=== PATIENT | male | born 1995 | race Caucasian/White ===

== ENCOUNTER 2016-06-29 13:28 | Emergency (ER) | payer OTHER ==
[2016-06-29 13:35] VITALS: BP 137/94; PULSE 59; RESP 18; TEMP 97.5; O2SAT 98
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
== END 2016-06-29 14:29 | disposition home or self-care (01) ==
DX: S06.0X0A Concussion without loss of consciousness, initial encounter (principal); F17.200 Nicotine dependence, unspecified, uncomplicated; W22.8XXA Striking against or struck by other objects, initial encounter; Y93.89 Activity, other specified

== ENCOUNTER 2016-08-05 17:48 | Observation (INO) | payer OTHER ==
[2016-08-05 18:19] LABS: % IMMATURE GRANULYOCYTES 0.4 % (0.0-1.1); ABSOLUTE IMMATURE GRANULOCYTES 0.04 10^3/uL (0.00-0.10); ADD DIFF? NO; ADD MORPH? NO; ADD SCAN? NO; ATYPICAL LYMPHOCYTE FLAG 20 (0-99); FRAGMENT RBC FLAG 0 (0-99); HEMATOCRIT 46.4 % (40.0-51.0); HEMOGLOBIN 15.6 g/dL (13.7-17.5); LEFT SHIFT FLG 0 (0-99); LIPEMIA HEMOLYSIS FLAG 80 (0-99); MEAN CELL HEMOGLOBIN CONCENTR. 33.6 g/dL (32.4-36.7); MEAN CELL VOLUME 80.3 fL (81.5-99.8); MEAN PLATELET VOLUME 9.8 fL (8.7-11.7); PLATELET CLUMPS FLAG 0 (0-99); PLATELET COUNT 177 10^3/uL (150-400); RED BLOOD CELL COUNT 5.78 10^6/uL (4.40-6.38); RED CELL DISTRIBUTION WIDTH 13.1 % (11.5-15.2)
--- NOTE | 2016-08-05 18:19 | EDPHY ---
H & P Time Seen by Provider: 08/05/16 18:15 HPI/ROS: Chief complaint. Abdominal pain HPI. 20-year-old male presents emergency department with abdominal pain that started about 7 o'clock this morning. Initially he thought he just had upset stomach or ate something that did not agree with him. He had dull pain in the periumbilical area. It is now moved to the right lower quadrant. No left- sided pain. His pain is worse with movement. No vomiting. Decreased appetite. He last ate at 3:30 p.m.. He has no abdominal history. No urinary symptoms. No complaints of penis or testicles problem. No similar symptoms previously ROS Constitutional. no fever/chills, no weakness Eyes. no problems with vision ENT. no sore throat, no nasal drainage Cardiovascular. no chest pain Respiratory. no shortness of breath, no cough Abdominal. Right lower quadrant abdominal pain . no problems urinating MS. no calf pain/swelling, no neck/back pain, no joint pain Skin. no rash Lymph. no swollen glands Neuro. no headache, no dizziness, no difficulty walking or with speech Past Medical/Surgical History: Healthy Social History: Single, daily smoker, no alcohol Smoking Status: Current some day smoker Physical Exam: General Appearance: Alert well-developed male mild distress vital signs are stay Eyes: Pupils equal and round no pallor or injection. ENT, Mouth: Mucous membranes are moist. Respiratory: There are no retractions, lungs are clear to auscultation. Cardiovascular: Regular rate and rhythm. Gastrointestinal: Abdomen is soft with tenderness in the right lower quadrant at McBurney's point. He has peritoneal irritation when palpating the left side that irritates the right lower quadrant. Decreased bowel sounds. No masses Neurological: Awake and alert, sensory and motor exams grossly normal. Skin: Warm and dry, no rashes. Musculoskeletal: Neck is supple nontender. Extremities symmetrical, full range of motion. Psychiatric: Patient is oriented X 3, there is no agitation. Constitutional: Initial Vital Signs Temperature (C) 36.8 C 08/05/16 17:48 Heart Rate 84 08/05/16 17:48 Respiratory Rate 16 08/05/16 17:48 Blood Pressure 140/90 H 08/05/16 17:48 O2 Sat (%) 94 08/05/16 17:48 O2 Delivery Mode Room Air Allergies/Adverse Reactions: No Known Allergies Allergy (Unverified 06/29/16 13:32) Home Medications: Medication Instructions Recorded NK [No Known Home Meds] 06/29/16 Medical Decision Making - Diagnostics Imaging Results: Imaging Impressions Abdomen CT 08/05/16 18:35 Impression: 1. Borderline thickened appendix with only minimal if any periappendiceal inflammatory change suggestive of very early appendicitis. However, clinical correlation is recommended. 2. Small amount of free fluid in the cul-de-sac. Findings discussed with Dr. Jak Caicedo at 19:32 hour, 08/05/2016. CT abdomen and pelvis with IV contrast reviewed by me and discussed with Dr. Moreau shows possible early appendicitis. No other source of pain for the right lower quadrant is identified Procedures: IV normal saline ED Course/Re-evaluation: Patient and I discussed imaging lab results. We discussed treatment plan including need for surgery. Patient expresses understanding abdomen I consulted and discussed case with Dr. Crane, surgeon, who sees the patient in the emergency department. He agrees the patient has appendicitis. Differential Diagnosis: I considered appendicitis, urinary tract infection and pyelonephritis, constipation - Data Points Laboratory Results: Laboratory Results 08/05/16 21:05 08/05/16 18:04 08/05/16 08/05/16 08/05/16 21:05 21:05 19:20 WBC 7.75 10^3/uL 10^3/uL (3.80-9.50) RBC 4.94 10^6/uL 10^6/uL (4.40-6.38) Hgb 13.4 g/dL L g/dL (13.7-17.5) Hct 39.7 % L % (40.0-51.0) MCV 80.4 fL L fL (81.5-99.8) MCH 27.1 pg L pg (27.9-34.1) MCHC 33.8 g/dL g/dL (32.4-36.7) RDW 13.2 % % (11.5-15.2) Plt Count 147 10^3/uL L 10^3/uL (150-400) MPV 9.9 fL fL (8.7-11.7) Neut % (Auto) 59.2 % % (39.3-74.2) Lymph % (Auto) 28.0 % % (15.0-45.0) Randolph % (Auto) 10.6 % % (4.5-13.0) Eos % (Auto) 1.5 % % (0.6-7.6) Baso % (Auto) 0.4 % % (0.3-1.7) Nucleat RBC Rel Count 0.0 % % (0.0-0.2) Absolute Neuts (auto) 4.59 10^3/uL 10^3/uL (1.70-6.50) Absolute Lymphs (auto) 2.17 10^3/uL 10^3/uL (1.00-3.00) Absolute Monos (auto) 0.82 10^3/uL H 10^3/uL (0.30-0.80) Absolute Eos (auto) 0.12 10^3/uL 10^3/uL (0.03-0.40) Absolute Basos (auto) 0.03 10^3/uL 10^3/uL (0.02-0.10) Absolute Nucleated RBC 0.00 10^3/uL 10^3/uL (0-0.01) Immature Gran % 0.3 % % (0.0-1.1) Immature Gran # 0.02 10^3/uL 10^3/uL (0.00-0.10) Sodium Potassium Chloride Carbon Dioxide Anion Gap BUN Creatinine Estimated GFR Glucose Calcium C-Reactive Protein 15.9 mg/L H mg/L (<10.0) Urine Color YELLOW Urine Appearance CLEAR Urine pH 7.0 (5.0-7.5) Ur Specific [place] 1.033 H (1.002-1.030) Urine Protein NEGATIVE (NEGATIVE) Urine Ketones NEGATIVE (NEGATIVE) Urine Blood NEGATIVE (NEGATIVE) Urine Nitrate NEGATIVE (NEGATIVE) Urine Bilirubin NEGATIVE (NEGATIVE) Urine Urobilinogen NEGATIVE EU EU (0.2-1.0) Ur Leukocyte Esterase NEGATIVE (NEGATIVE) Urine Glucose NEGATIVE (NEGATIVE) 08/05/16 08/05/16 18:04 18:04 WBC 10.00 10^3/uL H 10^3/uL (3.80-9.50) RBC 5.78 10^6/uL 10^6/uL (4.40-6.38) Hgb 15.6 g/dL g/dL (13.7-17.5) Hct 46.4 % % (40.0-51.0) MCV 80.3 fL L fL (81.5-99.8) MCH 27.0 pg L pg (27.9-34.1) MCHC 33.6 g/dL g/dL (32.4-36.7) RDW 13.1 % % (11.5-15.2) Plt Count 177 10^3/uL 10^3/uL (150-400) MPV 9.8 fL fL (8.7-11.7) Neut % (Auto) 66.5 % % (39.3-74.2) Lymph % (Auto) 21.6 % % (15.0-45.0) Randolph % (Auto) 10.2 % % (4.5-13.0) Eos % (Auto) 0.9 % % (0.6-7.6) Baso % (Auto) 0.4 % % (0.3-1.7) Nucleat RBC Rel Count 0.0 % % (0.0-0.2) Absolute Neuts (auto) 6.65 10^3/uL H 10^3/uL (1.70-6.50) Absolute Lymphs (auto) 2.16 10^3/uL 10^3/uL (1.00-3.00) Absolute Monos (auto) 1.02 10^3/uL H 10^3/uL (0.30-0.80) Absolute Eos (auto) 0.09 10^3/uL 10^3/uL (0.03-0.40) Absolute Basos (auto) 0.04 10^3/uL 10^3/uL (0.02-0.10) Absolute Nucleated RBC 0.00 10^3/uL 10^3/uL (0-0.01) Immature Gran % 0.4 % % (0.0-1.1) Immature Gran # 0.04 10^3/uL 10^3/uL (0.00-0.10) Sodium 139 mEq/L mEq/L (134-144) Potassium 3.9 mEq/L mEq/L (3.5-5.2) Chloride 101 mEq/L mEq/L (97-110) Carbon Dioxide 27 mEq/l mEq/l (22-31) Anion Gap 11 mEq/L mEq/L (8-16) BUN 13 mg/dL mg/dL (7-23) Creatinine 1.1 mg/dL mg/dL (0.7-1.3) Estimated GFR > 60 Glucose 94 mg/dL mg/dL (70-100) Calcium 10.0 mg/dL mg/dL (8.5-10.4) C-Reactive Protein Urine Color Urine Appearance Urine pH Ur Specific Phoenix Urine Protein Urine Ketones Urine Blood Urine Nitrate Urine Bilirubin Urine Urobilinogen Ur Leukocyte Esterase Urine Glucose Medications Given: Discontinued Medications Sodium Chloride (Ns) 1,000 mls @ 0 mls/hr IV ONCE ONE PRN Reason: Wide Open Stop: 08/05/16 18:36 Last Admin: 08/05/16 18:42 Dose: 1,000 mls Sodium Chloride (Ns) 1,000 mls @ 0 mls/hr IV ONCE ONE PRN Reason: Wide Open Stop: 08/05/16 18:36 Last Admin: 08/05/16 18:43 Dose: Not Given Departure - Departure Disposition: [facility] Inpatient Acute Clinical Impression: Acute appendicitis Qualifiers: Acute appendicitis type: with localized peritonitis Qualified Code(s): K35.3 - Acute appendicitis with localized peritonitis Condition: Good Referrals: NONE *PRIMARY CARE P,. [Primary Care Provider] - As per Instructions
[2016-08-05 18:34] LABS: ANION GAP 11 mEq/L (8-16); CARBON DIOXIDE 27 mEq/l (22-31); CHLORIDE 101 mEq/L (97-110); CREATININE 1.1 mg/dL (0.7-1.3); GLOMERULAR FILTRATION RATE > 60; GLUCOSE 94 mg/dL (70-100); POTASSIUM 3.9 mEq/L (3.5-5.2); SODIUM 139 mEq/L (134-144)
[2016-08-05] MEDS ORDERED: NS 1,000 ML IV ONE ×3 (18:35→22:52)
[2016-08-05] MEDS ORDERED: IOPAMIDOL (ISOVUE-300) 100 ML BTL IV ONE (18:48)
[2016-08-05 19:28] LABS: COLOR YELLOW; LEUKOCYTE ESTERASE,URINE NEGATIVE (NEGATIVE); NITRITE,URINE NEGATIVE (NEGATIVE)
[2016-08-05 21:16] LABS: % IMMATURE GRANULYOCYTES 0.3 % (0.0-1.1); ABSOLUTE IMMATURE GRANULOCYTES 0.02 10^3/uL (0.00-0.10); ADD DIFF? NO; ADD MORPH? NO; ADD SCAN? NO; ATYPICAL LYMPHOCYTE FLAG 20 (0-99); FRAGMENT RBC FLAG 0 (0-99); HEMATOCRIT 39.7 % (40.0-51.0); HEMOGLOBIN 13.4 g/dL (13.7-17.5); LEFT SHIFT FLG 0 (0-99); LIPEMIA HEMOLYSIS FLAG 90 (0-99); MEAN CELL HEMOGLOBIN 27.1 pg (27.9-34.1); MEAN CELL HEMOGLOBIN CONCENTR. 33.8 g/dL (32.4-36.7); MEAN CELL VOLUME 80.4 fL (81.5-99.8); MEAN PLATELET VOLUME 9.9 fL (8.7-11.7); PLATELET CLUMPS FLAG 10 (0-99); PLATELET COUNT 147 10^3/uL (150-400); RED BLOOD CELL COUNT 4.94 10^6/uL (4.40-6.38); RED CELL DISTRIBUTION WIDTH 13.2 % (11.5-15.2)
[2016-08-05] MEDS ORDERED: ERTAPENEM 1 GM in NS 100 ML IV ONE (22:45)
[2016-08-06] MEDS ORDERED: ceFAZolin 1 GM/5 ML SYR ONE (00:33)
[2016-08-06] MEDS ORDERED: HEPARIN 10,000 UNIT/10 ML MDV ONE (00:33)
[2016-08-06] MEDS ORDERED: MIDAZOLAM 2 MG/2 ML VIAL ONE (00:33)
[2016-08-06] MEDS ORDERED: HYDROmorphONE/DILAUDID 1 MG/ML SYR IVP PRN (00:34)
[2016-08-06] MEDS ORDERED: ONDANSETRON 4 MG/2 ML VIAL IVP PRN (00:34)
[2016-08-06] MEDS ORDERED: PROPOFOL/EMULSION 500 MG/50 ML BOTTLE IV ONE (00:35)
[2016-08-06] MEDS ORDERED: fentaNYL 250 MCG/5 ML INJ ONE (00:35)
[2016-08-06] MEDS ORDERED: PROPRANOLOL HCL 10 MG TAB PO PRN (00:40)
--- NOTE | 2016-08-06 00:51 | GHP ---
[f rep st] PREOP HISTORY AND PHYSICAL DATE OF ADMISSION: 08/05/2016 ADMITTING DIAGNOSIS: Acute appendicitis. 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 He got off work at approximately 1 a.m. yesterday morning. His stomach started acting up. He became tighter, bloated, and developed a dull pain, which was diffuse in location. He went home, was able to sleep "okay," by his report. He woke up in the morning, had 2 granola bars and yogurt. When he woke up, his abdomen was tight and uncomfortable. It was uncomfortable to sit. He then walked to work where he was standing. He moved his bowels about 7: 30. At approximately 12:30, the pain moved to the right lower quadrant, and it was much worse as he walked back to the station to turn in his security gear. He could not walk home, and had to call an Uber. At 3:30, he tried a sushi bowl , but felt nauseous immediately. He came to the ER approximately 6 p.m. Two weeks ago, he had a four-day episode of what he called was a stomach bug. and his abdomen was upset whenever he ate or drank. He has not had a recent upper respiratory tract infection or diarrhea. There is no history of inflammatory bowel disease. He did go to [place] from June 24 to June 28. He has not had any antibiotics in the last 6 months. He has had no prior abdominal surgery. He has had no prior similar symptoms. SOCIAL HISTORY: He is a nonsmoker. He drinks 2-3 nights a week of 10-12 beers a night. ALLERGIES: He has no known drug allergies. MEDICATIONS: He is starting on Lexapro at a 1/2 pill dose, he believes that is 5 mg. He does take propranolol 10 mg 1-2 times a day for panic attacks. PAST MEDICAL HISTORY: He has had no prior abdominal surgery. He has no history of rheumatic fever, tuberculosis, hepatitis, transfusions or HIV. REVIEW OF SYSTEMS: He had a concussion 3-1/2 weeks ago. He had seizures as a very young child (approximately 4 years old, and did have a spinal tap at that time). In the interim, he has had no further issues. REVIEW OF SYSTEMS: Otherwise quite negative. There are no limits on his activities. No history of steroid use. PHYSICAL EXAMINATION: GENERAL: He is awake and alert, in mild distress. It is difficult for him to sit up. HEENT: His skull is normocephalic and atraumatic. NEUROLOGIC: Examination does not show any focal lateralizing findings. LYMPH NODES: There is no cervical, supraclavicular, axillary or inguinal lymphadenopathy. NECK: His neck is unremarkable. Thyroid is not enlarged. There are no carotid bruits. BACK: Unremarkable, and normal to inspection. LUNGS: Clear to auscultation. CARDIAC: Shows S1, S2 to be normal , with normal split of S2, without murmurs, rubs, or gallops. ABDOMEN: Tender with cough at McBurney's point at a rate of 7 on a scale of 1-10. Bowel sounds are distinctly hypoactive. Psoas and obturator signs are negative. To palpation, left upper quadrant is 1, left midabdomen is 1, left lower quadrant is 2, epigastrium is 2, periumbilical area is 3, suprapubic area is 3, right upper quadrant is 5, right midabdomen is 8, right lower quadrant is 10. LABORATORY DATA: His white count was done twice in the course of this evening, was 10,000 with 66 neutrophils, and went to 7000 with 59% neutrophils. His platelet count dropped from 177 to 147. His hematocrit dropped with hydration from 46 to 40. C-reactive protein is 15.9, normal is less than 10. Urine is unremarkable. A CT shows a borderline-thickened appendix, with minimal periappendiceal inflammation, and there is some fluid in the cul-de-sac. He does have an appendicolith. PLAN: Perform a laparoscopic appendectomy. He understands the planned procedure, and wished to proceed as outlined. /[id number]/MODL MTDD
[2016-08-06] MEDS ORDERED: LR 1,000 ML IV SCH (01:00)
[2016-08-06] MEDS ORDERED: ROCURONIUM 50 MG/5 ML VIAL ONE (01:05)
[2016-08-06] MEDS ORDERED: SUGAMMADEX SODIUM 200 MG/2 ML VIAL IVP ONE (01:13)
--- NOTE | 2016-08-06 01:50 | POSTOPPROG ---
Post Op Note Date of Operation: 08/06/16 Surgeon: Baron Crane Anesthesia: GET(General Endotracheal) Pre-op Diagnosis: acute appendicitis with appendolith Post-op Diagnosis: acute appendicitis with appendolith with mesenteric adenitis Indication: acute appendicitis with appendolith Procedure: laparoscopic appendectomy Findings: acute appendicitis with appendolith and mesenteric adenitis Inf/Abcess present in the surg proc area at time of surgery?: No EBL: 50-100 Total fluids administered: 1999 Complications: none Specimen(s): appendix
--- NOTE | 2016-08-06 02:51 | GOP ---
[f rep st] OPERATIVE REPORT DATE OF OPERATION: 08/06/2016 SURGEON: Baron Crane MD ANESTHESIA: General endotracheal. PREOPERATIVE DIAGNOSIS: Acute appendicitis with appendicolith. POSTOPERATIVE DIAGNOSIS: 1. Acute appendicitis with appendicolith. 2. Mesenteric adenitis. PROCEDURE PERFORMED: Laparoscopic appendectomy. FINDINGS: Acute appendicitis with appendicolith and mesenteric adenitis. There was no evidence of a deep space infection. SPECIMENS: Removed appendix. ESTIMATED BLOOD LOSS: 50-100 cc. INDICATIONS: Acute appendicitis with appendicolith. DESCRIPTION OF PROCEDURE: The patient was placed on the operating table in supine position. A surgical time-out was carried out and agreed to by all members of the operative team. The abdomen was now carefully clipped, prepped, and draped. A curvilinear incision was planned at the umbilicus. A transverse suprapubic incision was planned as well as an oblique left lower quadrant incision. The skin was incised at all 3 sites. The incision was deepened with Bovie electrocautery. The umbilicus incision was curvilinear, paralleling the edge of the umbilicus. Subcutaneous tissue was carefully spread to expose the anterior rectus sheath which was elevated between 2 Allis clamps. The fascia was incised in the midline. Pursestring of #0 PDS was placed. The peritoneum was entered. An 11- 12 mm Jasso disposable trocar was positioned. Intra-abdominal insufflation was carried out to 15 mmHg. A 5 mm left lower quadrant trocar was carefully placed under direct vision, as was a suprapubic 5 mm trocar. The appendix was easily identified. The mesoappendix was elevated. It was divided with the LigaSure down to its base. The appendix was then transected with an EndoGIA stapler. The specimen was removed in an EndoCatch bag. Irrigation was carried out with heparin and Ancef-containing irrigant. The small bowel was run for a distance of 3 feet. There was no Meckel diverticulum seen, but mesenteric adenitis was prominent. The ports were removed under direct vision. A simple suture was placed at the midportion of the fascial defect. The pursestring was tied. Then, the simple suture was tied as well. This resulted in an excellent closure. Subcutaneous tissue was well irrigated. There was no bleeding identified. Inverted simple sutures of 4-0 Vicryl were placed at all skin incision sites. Dermabond was used. The patient was transferred to recovery in stable and satisfactory condition. FLUIDS ADMINISTERED: 2000 cc. COMPLICATIONS: None. /[id number]/MODL MTDD
[2016-08-06] MEDS ORDERED: KETOROLAC 30 MG/1 ML SDV IVP SCH (04:00)
[2016-08-06] MEDS: ACETAMINOPHEN 500 MG TAB PO SCH ×2 (06:17→13:46)
[2016-08-06] MEDS ORDERED: ESCITALOPRAM OXALATE 10 MG TAB PO SCH (09:00)
[2016-08-06] MEDS: KETOROLAC 30 MG/1 ML SDV IVP SCH ×2 (09:13→13:47)
[2016-08-06 11:14] VITALS: BP 131/58; PULSE 56; RESP 18; TEMP 98.2; O2SAT 96
== END 2016-08-06 14:45 | disposition home or self-care (01) ==
LOC: INTOOBSV 22:52 → F3E 08-06 02:40
PROVIDERS: ADMIT Surgery; ATTEND Surgery
PROC: 0DTJ4ZZ Resection of Appendix, Percutaneous Endoscopic Approach (ICD-10-PCS; principal; 2016-08-05)
DX: K35.80 Unspecified acute appendicitis (principal); I88.0 Nonspecific mesenteric lymphadenitis; F17.200 Nicotine dependence, unspecified, uncomplicated; F41.9 Anxiety disorder, unspecified
CPT/HCPCS: 44970; 74177; G0378; 96374; J1170; J1335; J1644; J1885; J2250; J2704; J3010; Q9967

== ENCOUNTER 2017-01-18 12:10 | Emergency (ER) | payer OTHER ==
[2017-01-18 12:15] VITALS: BP 131/60; PULSE 64; RESP 16; TEMP 97.9; O2SAT 96
--- NOTE | 2017-01-18 13:55 | EDPHY ---
General Narrative: CHIEF COMPLAINT: Lump in upper abdomen HISTORY OF PRESENT ILLNESS: Patient complains of 2 month history of "lump in my chest." This is a palpable area in the upper part of the epigastrium that he has felt since then. It has been stable in appearance and size. It is not painful. He has no chest pain or shortness of breath. No abdominal pain. No changes in bowel or bladder habits. No changes in the caliber of his stool. No bloody stools. No weight loss. No fevers. No lethargy. No history of cancer. He has no complaints associated with it but says that it has been there for 2 months and his parents were concerned about it. He has no other associated complaints or modifying factors. REVIEW OF SYSTEMS: Ten systems reviewed and are negative unless otherwise noted in the HPI PCP: None locally. Physician back in [place] was constant SPECIALISTS: None PAST MEDICAL HISTORY: None PAST SURGICAL HISTORY: Appendectomy 2017 SOCIAL HISTORY: Nonsmoker. Occasional alcohol. No illicit substance use. 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 Airway patent Neck: Normal inspection, supple, non-tender Respiratory: Lungs are clear to auscultation. No wheezing, rhonchi or crackles Cardiovascular: Regular rate and rhythm. No murmur Gastrointestinal: Abdomen is soft and nontender. There is a 2.5 cm palpable firmness in the epigastrium just left of midline. This is palpable only in the rectus abdominus plane. There is no palpable deep mass. This is difficult to palpate at rest and without engagement of the rectus abdominus. This is nonpulsatile. Back: non-tender, no bony abnormalities Neurological: A&O, nonfocal, normal gait Skin: Warm and dry, no rash. No petechiae or purpura Extremities: Nontender, no pedal edema Psychiatric: Mood and affect normal DIFFERENTIAL DIAGNOSES: Including but not limited to mass, muscle spasm, abnormal anatomy, cyst MDM: 1:52 p.m. Rectus abdominus abnormality is palpable with benign abdominal examination. No weight loss. No bloody stools or emesis. No change in the caliber of stools. No fever. No night sweats or changes in his energy level. No anorexia. I do feel that there is an abnormality in the rectus abdominus that warrants further workup but not emergently. The patient is comfortable this is well. I do feel he would benefit from an outpatient follow-up for further imaging workup. He is comfortable this. I recommend return to emergency department for any changes in the symptoms as we discussed. He is comfortable with this plan and discharged stable condition. - History Smoking Status: Former smoker - Objective Vital Signs: Initial Vital Signs Temperature (C) 97.9 F 01/18/17 12:12 Heart Rate 64 01/18/17 12:12 Respiratory Rate 16 01/18/17 12:12 Blood Pressure 131/60 H 01/18/17 12:12 O2 Sat (%) 96 01/18/17 12:12 O2 Delivery Mode Room Air Allergies/Adverse Reactions: No Known Allergies Allergy (Unverified 06/29/16 13:32) Home Medications: Medication Instructions Recorded Escitalopram Oxalate [Lexapro] 5 mg PO DAILY 08/06/16 Multivitamins [Multivitamin (*)] 1 each PO DAILY 08/06/16 Propranolol HCl [Inderal 10mg (*)] 10 mg PO DAILY PRN 08/06/16 Departure - Departure Disposition: Home, Routine, Self-Care Clinical Impression: Lump in the abdomen Qualifiers: Abdominal location: epigastric Qualified Code(s): R19.06 - Epigastric swelling , mass or lump Condition: Good Instructions: Soft Tissue Mass (ED) Additional Instructions: 1. Follow up with the on-call primary care physician who is information I will provide 2. Return to ER for any abdominal pain, fever, weight loss, night sweats, changes in your bowel movements Referrals: MADAY AVERY [Other] - As per Instructions Marichuy March MD [[facility] Primary Care Provider] - As per Instructions
== END 2017-01-18 14:03 | disposition home or self-care (01) ==
DX: R19.06 Epigastric swelling, mass or lump (principal); Z87.891 Personal history of nicotine dependence